=== PATIENT | male | born 1995 | race Caucasian/White ===

== ENCOUNTER 2020-03-13 23:38 | Emergency (ER) | payer OTHER, SELFPAY ==
[~2020-03-13] VITALS: Ht 180.3 cm; Wt 97.2 kg
[2020-03-14] MEDS ORDERED: KETOROLAC 30 MG/ML 1ML VIAL As Ordered ONE (00:26)
[2020-03-14] MEDS ORDERED: KETOROLAC 30 MG/ML 1ML VIAL IV ONE (00:30)
[2020-03-14] MEDS ORDERED: ISOVUE-370 76% 100ML VIAL As Ordered ONE (00:32)
[2020-03-14 00:51] LABS: BASO # 0.1 10^3/uL (0.0-0.2); BASO % 0.3 % (0.0-1.0); EOS # 0.2 10^3/uL (0.0-0.5); EOS % 0.9 % (0.0-3.0); HEMATOCRIT 47.9 % (42.0-52.0); LYMPH # 1.4 10^3/uL (1.5-5.0); LYMPH % 6.7 % (24.0-44.0); MEAN CORPUSCULAR HEMOGLOBIN 29.6 pg (27.0-33.0); MEAN CORPUSCULAR HGB CONC 33.4 g/dl (32.0-36.5); MEAN CORPUSCULAR VOLUME 88.7 fl (80.0-96.0); MONO % 9.7 % (0.0-5.0); NEUTROPHILS # 17.1 10^3/uL (1.5-8.5); NEUTROPHILS % 81.9 % (36.0-66.0); PLATELET COUNT, AUTOMATED 315 10^3/uL (150-450); WHITE BLOOD COUNT 20.8 10^3/uL (4.0-10.0)
[2020-03-14 01:17] LABS: BLOOD UREA NITROGEN 10 MG/DL (7-18); CALCIUM LEVEL 9.2 MG/DL (8.5-10.1); CARBON DIOXIDE LEVEL 27 MEQ/L (21-32); CHLORIDE LEVEL 108 MEQ/L (98-107); CREATININE FOR GFR 0.74 MG/DL (0.70-1.30); GLOMERULAR FILTRATION RATE > 60.0 (>60); GLUCOSE, FASTING 107 MG/DL (70-100); POTASSIUM SERUM 4.1 MEQ/L (3.5-5.1); SODIUM LEVEL 138 MEQ/L (136-145)
--- NOTE | 2020-03-14 01:56 | REPVR ---
PROCEDURE INFORMATION: Exam: CT Maxillofacial With Contrast Exam date and time: 03/14/2020 12:26 AM Age: 24 years old Clinical indication: Jaw pain; Patient HX: Known bad tooth right lower side; Additional info: Right sided facial swelling TECHNIQUE: Imaging protocol: Computed tomography images of the face with intravenous contrast. Radiation optimization: All CT scans at this facility use at least one of these dose optimization techniques: automated exposure control; mA and/or kV adjustment per patient size (includes targeted exams where dose is matched to clinical indication); or iterative reconstruction. Contrast material: ISO; Contrast volume: 75 ml; Contrast route: INTRAVENOUS (IV); COMPARISON: No relevant prior studies available. FINDINGS: Orbits: Orbits are normal. Globes are unremarkable. Bones/joints: No acute fracture. Sinuses: Normal. No air-fluid levels. Soft tissues: Prominent right lower facial soft tissue swelling. Dental: There is a 1.5 x 3.0 cm odontogenic abscess along the surface of the right severo mandible associated with a carious right mandibular 1st molar. Other dental caries and odontogenic disease are noted. Lymph nodes: Reactive cervical lymphadenopathy. IMPRESSION: 1. Odontogenic abscess associated with the right 1st mandibular molar. 2. Associated right facial cellulitis. Electronically signed by: Mal Lubin On 03/14/2020 01:56:21 AM
[2020-03-14] MEDS ORDERED: AUGMENTIN 875 MG TAB PO ONE (02:15)
[2020-03-14] MEDS ORDERED: IBUP80TA PO (02:15)
[2020-03-14] MEDS ORDERED: AUGM875T28 PO (02:15)
[2020-03-14 02:25] VITALS: BP 143/87
== END 2020-03-14 02:26 | disposition home or self-care (01) ==
LOC: M ED 23:38
DX: K04.7 Periapical abscess without sinus (principal); F17.200 Nicotine dependence, unspecified, uncomplicated
CPT/HCPCS: 70487; 80048; 85025; 87040; 96374; 99283; J1885; Q9967